=== PATIENT | female | born 1975 | race Caucasian/White ===

== ENCOUNTER 2020-03-17 14:43 | Emergency (ER) | payer OTHER ==
[~2020-03-17] VITALS: Ht 157.5 cm; Wt 77.1 kg
[~2020-03-17 14:43] MED LIST: CALCIUM500 M1 PO; VITAFOL-OB+DHA1 EACH PO; VITAMIN C500 M1 PO
[2020-03-17] MEDS ORDERED: CYCLOBENZAPRINE10 MG PO (20:49)
== END 2020-03-17 21:02 | disposition home or self-care (01) ==
LOC: ED 14:43
DX: M54.5 Low back pain (principal)
CPT/HCPCS: 99283